=== PATIENT | male | born 1960 | race African-American/Black ===

== ENCOUNTER → 2020-06-16 11:12 | Outpatient (CLI) | payer OTHER, SELFPAY ==
--- NOTE | 2020-06-16 | DI.ECHO.S_ITS ---
[facility]---------[facility] +---------+ : : [address] : [place] : : : : [id number] : : : : Phone: [phone]---------+ Echocardiogram Report + + :Name: IBAN GOLDSMITH Study Date: 06/16/2020 Height: 71 in : :[facility] Weight: 265 lb : : Gender: Male BSA: 2.4 m2 : :: 1960 Age: 59 yrs BP: 153/92 mmHg: :Reason For Study: HEART ATTACK : :Ordering Physician: BERNARDO, : :TOMY Performed By: Gladys Gonzalez : :Referring: TOMY CHANG : + + Interpretation Summary Left ventricular systolic function is vigorous with an estimated ejection fraction of 70 to 75% without any focal wall motion abnormality and appears slightly more dynamic compared to the previous study. There is normal left ventricular size with mild LVH that is unchanged. Diastolic function cannot be assessed because of tachycardia. The right ventricle appears normal and unchanged from the previous study. Right ventricular systolic pressure cannot be estimated but CVP is likely around 3 mmHg. Both atria are normal in size. The left atrium is mildly smaller compared to the previous study. There are no significant valvular abnormalities. The patient was in sinus rhythm at 98-103 bpm which is faster compared to the previous exam. Procedure: A two-dimensional transthoracic echocardiogram with color flow and Doppler was performed. The study quality was technically adequate. Comparison is made with the echocardiogram of 07/02/2019. The patient was in sinus tachycardia with heart rates between 98-103 bpm during the exam. This is faster compared to the previous study. Left Ventricle: The left ventricle is normal in size. There is mild concentric left ventricular hypertrophy. This is unchanged compared to the previous study. Left ventricular systolic function is normal without focal wall motion abnormalities. The ejection fraction is estimated to be 70-75%. This is more dynamic compared to the previous study. Diastolic function could not be accurately assessed due to tachycardia. Right Ventricle: The right ventricle is normal in size and function. This is unchanged compared to the previous study. Atria: Both atria are normal in size. The left atrium has mildly decreased in size since the prior echo exam. There is no Doppler evidence for an interatrial shunt. Mitral Valve: The mitral valve is normal in structure and function. There is trace mitral regurgitation. Aortic Valve: The aortic valve is trileaflet. The aortic valve is mildly calcified. The aortic valve opens well. There is no aortic valve stenosis. No aortic regurgitation is present. Tricuspid Valve: The tricuspid valve is normal in structure and function. There is trace tricuspid regurgitation. Pulmonary artery pressures cannot be estimated because of the lack of a measurable TR jet velocity but the IVC suggests a CVP of around 3 mmHg. Pulmonic Valve: The pulmonic valve is not well visualized. There is trace pulmonic regurgitation. There is no significant valvular heart disease. Great Vessels: The aortic root is normal size. The dimensions of the ascending aorta are normal. The IVC is of normal diameter and collapses greater than 50% with a sniff. This suggests a low right atrial pressure of 3 mm Hg. Pericardium/ Pleura There is no pericardial effusion. There is no pleural effusion. MMode/2D Measurements & Calculations LVIDd: 4.6 cm LVOT diam: 2.0 cm LVIDs: 2.8 cm Ao root diam: 3.3 cm FS: 38.8 % asc Aorta Diam: 3.1 cm EPSS: 0.58 cm Ao Arch Diam (Prox Trans): 2.8 cm IVSd: 1.3 cm LVPWd: 1.3 cm LV felix. diameter/BSA (cm/m^2): 1.9 LV sys. diameter/BSA (cm/m^2): 1.2 LA A2 area: 23.3 cm2 RA long axis: 5.3 cm LA A4 area: 20.7 cm2 RA area: 16.9 cm2 LA length (vol): 5.8 cm RA vol: 45.6 ml LA vol: 70.6 ml RA : 19.2 ml/m2 LA vol index: 29.7 ml/m2 IVC diam: 1.4 cm RVD1 (basal): 3.5 cm TAPSE: 2.4 cm Doppler Measurements & Calculations Ao V2 max: 152.5 cm/sec LVOT Max Chalino: 107.1 cm/sec Ao V2 mean: 104.5 cm/sec LV V1 max P.6 mmHg Ao max P.3 mmHg LV V1 VTI: 17.0 cm Ao mean P.9 mmHg GABY(I,D): 1.9 cm2 Ao V2 VTI: 27.1 cm GABY(V,D): 2.2 cm2 sev ratio: 0.63 GABY indexed to BSA (cm^2/m^2): 0.81 MV E max chalino: 51.4 cm/sec PA V2 max: 82.3 cm/sec MV A max chalino: 90.5 cm/sec PA V2 mean: 55.4 cm/sec MV E/A: 0.57 PA mean P.5 mmHg Med Peak E' Chalino: 5.8 cm/sec PA pr(Accel): 43.0 mmHg E/E' med: 8.9 Lat Peak E' Chalino: 5.1 cm/sec E/E' lat: 10.0 E/e' average: 9.5 MV dec time: 0.21 sec SV(LVOT): 52.4 ml Reading Physician:03:58 PM
== END ==
PROVIDERS: PCP Nurse Practitioner Acute Care; Referring Provider Physician Assistant; Visit Provider Physician Assistant
DX: I21.9 Acute myocardial infarction, unspecified (principal); R00.0 Tachycardia, unspecified
CPT/HCPCS: 93306